=== PATIENT | female | born 1945 | race Caucasian/White ===

== ENCOUNTER 2018-10-02 18:54 | Observation (INO) | payer MEDICARE, OTHER ==
[~2018-10-02] VITALS: Ht 152.4 cm; Wt 49.9 kg
[~2018-10-02 18:54] MED LIST: ALBIPROI; ALBIPROI INH; ALBU8HFA2 INH; ALBU90OI INH; ALBU90OI6 INH; ALEN70; ASCO1ER; ASCO500; ASCO500 PO; ASPI81CH PO; ASPI81EC; ASPI81EC PO; ATOR10 PO; AZIT250 PO; BISO5; BISO5 PO; CALCA500CH PO; CALCAVITDA PO; CALGLU500; CARB200 PO; CARB200ER; CETI10 PO; CHLO25 PO; CHOL10002 PO; ERGO400 PO; ESCI20; FLUO10 PO; FLUSAL2505; FLUSAL2505 IH; HYDACE5 PO; Hair, Skin & N1 EACH PO; LEVFLO500 PO; LEVSOD100; LEVSOD125 PO; LEVSOD150 PO; LEVSOD175; LISI20 PO; MAGOXI400; MULTIVITAMIN; MULVITA; MULVITMIND PO; MULVITMINF PO; NIAC500ER; NIAC500ER PO; PERM5TC TOP; POTA10T PO; POTCHL10ER PO; PRED20 PO; ROSU10TA; SULTRIDS PO; THIA100; TIOT18 IH; TRAZ50; TRIHYD253A; VITAMIN C; VITAMIN D
[2018-10-02 19:39] LABS: Base Excess Venous -1.8 mmol/L; Bicarbonate Venous 22.1 mmol/L (24.0-30.0); PCO2 Venous 45.3 mmHg (38-42); PO2 Venous 35.3 mmHg (38-42); pH Blood Venous 7.33 (7.34-7.37)
[2018-10-02 19:51] LABS: BASOPHILS ABSOLUTE AUTO 0.04 K/mm3 (0.00-0.23); BASOPHILS PERCENT AUTO 1 % (0-2); EOSINOPHILS ABSOLUTE AUTO 0.17 K/mm3 (0.00-0.68); EOSINOPHILS PERCENT AUTO 3 % (0-6); Hemoglobin 12.5 g/dL (11.5-16.0); IMMATURE GRAN ABSOLUTE AUTO 0.02 K/mm3 (0.00-0.10); IMMATURE GRAN PERCENT AUTO 0 % (0-1); LYMPHOCYTES ABSOLUTE AUTO 2.46 K/mm3 (0.84-5.20); LYMPHOCYTES PERCENT AUTO 37 % (21-46); MONOCYTES ABSOLUTE AUTO 0.68 K/mm3 (0.16-1.47); MONOCYTES PERCENT AUTO 10 % (4-13); Mean Corpuscular HGB 33.6 pg (26.0-34.0); Mean Corpuscular HGB Conc 32.1 g/dL (31.5-36.5); Mean Corpuscular Volume 105 fL (80-100); Mean Platelet Volume 9.8 fL (9.1-12.4); NEUTROPHILS ABSOLUTE AUTO 3.36 K/mm3 (1.96-9.15); NEUTROPHILS PERCENT AUTO 50 % (41-73); Platelet Count 177 K/mm3 (150-400); RDW Coefficient Variation 12.9 % (11.7-14.2); RDW Standard Deviation 49.2 fL (35.1-46.3); Red Blood Cell Count 3.72 M/mm3 (3.80-5.20); White Blood Cell Count 6.73 K/mm3 (4.00-11.30)
[2018-10-02 20:17] LABS: Acetaminophen, Random <2.0 ug/mL (10.0-30.0); Carbamazepine 5.5 ug/mL (4.0-12.0); Ethanol (Alcohol), Blood, Med 232 mg/dL; Salicylate 17.3 mg/dL (2.8-20.0)
[2018-10-02 20:20] LABS: Thyroid Stimulating Hormone 0.974 uIU/mL (0.360-4.800)
[2018-10-02 20:23] LABS: Alanine Aminotransfer (ALT/SGP 16 U/L (12-78); Albumin, Blood 3.3 g/dL (3.4-5.0); Albumin/Globulin Ratio 1.1 (0.8-1.8); Alk Phos 114 U/L (50-136); Anion Gap 9 mmol/L (6-16); Aspartate Aminotrans (AST/SGOT 13 U/L (12-37); Bilirubin, Total <0.1 mg/dL (0.1-1.0); Blood Urea Nitrogen 20 mg/dL (8-24); Bun/Creatinine Ratio 27.9 (12.0-20.0); CO2, Blood 23 mmol/L (21-32); Calcium, Blood 8.7 mg/dL (8.5-10.1); Chloride, Blood 107 mmol/L (98-108); Creatinine, Blood 0.72 mg/dL (0.40-1.00); Globulin, Blood 3.1 g/dL (2.2-4.0); Glomerular Filtration Rate >60 (60-); Glucose, Blood 76 mg/dL (70-99); Potassium, Blood 4.2 mmol/L (3.5-5.5); Sodium, Blood 139 mmol/L (136-145); Total Protein, Blood 6.4 g/dL (6.4-8.2)
[2018-10-03 14:01] LABS: Source, Urine Clean Catch
[2018-10-03 14:06] LABS: Appearance, Urine Clear (Clear); Bilirubin, Urine Neg (Neg); Blood, Urine Neg (Neg); Color, Urine Yellow (P-Yellow); Glucose Qualitative, Urine Neg (Neg); Ketones, Urine Neg (Neg); Leukocyte Esterase, Urine Neg (Neg); Nitrite, Urine Neg (Neg); Protein, Urine Neg (Neg); Urobilinogen, Urine NORM (Normal)
[2018-10-03 14:41] LABS: U Amphetamine Screen Not Detected; U Barbituate Screen Not Detected; U Benzodiazapine Screen Not Detected; U Buprenorphine Screen Not Detected; U Cannabinoids Screen Not Detected; U Cocaine Screen Not Detected; U Methadone Screen Not Detected; U Methamphetamine Screen Not Detected; U Opiates Screen Not Detected; U Oxycodone Screen Not Detected; U Phencyclidine Screen Not Detected; U Propoxyphene Screen Not Detected
== END 2018-10-04 15:04 | disposition home or self-care (01) ==
LOC: ER 18:54 → EOR 18:55
PROVIDERS: ADMIT Emergency Medicine
DX: R45.851 Suicidal ideations (principal); F32.9 Major depressive disorder, single episode, unspecified; T50.905A Adverse effect of unspecified drugs, medicaments and biological substances, initial encounter; Z79.899 Other long term (current) drug therapy
CPT/HCPCS: 36415; 80053; 80156; 81003; 82803; 84443; 85025; 99285; G0378; G0480

== ENCOUNTER 2018-10-24 01:36 | Emergency (ER) | payer MEDICARE, OTHER ==
[~2018-10-24] VITALS: Ht 165.1 cm; Wt 45.4 kg
[2018-10-24 02:05] LABS: BASOPHILS ABSOLUTE AUTO 0.04 K/mm3 (0.00-0.23); BASOPHILS PERCENT AUTO 1 % (0-2); EOSINOPHILS ABSOLUTE AUTO 0.21 K/mm3 (0.00-0.68); EOSINOPHILS PERCENT AUTO 4 % (0-6); Hematocrit 39.8 % (33.0-51.0); IMMATURE GRAN ABSOLUTE AUTO 0.08 K/mm3 (0.00-0.10); IMMATURE GRAN PERCENT AUTO 1 % (0-1); LYMPHOCYTES ABSOLUTE AUTO 2.69 K/mm3 (0.84-5.20); LYMPHOCYTES PERCENT AUTO 45 % (21-46); MONOCYTES ABSOLUTE AUTO 0.59 K/mm3 (0.16-1.47); MONOCYTES PERCENT AUTO 10 % (4-13); Mean Corpuscular HGB Conc 32.7 g/dL (31.5-36.5); Mean Corpuscular Volume 104 fL (80-100); Mean Platelet Volume 9.7 fL (9.1-12.4); NEUTROPHILS ABSOLUTE AUTO 2.35 K/mm3 (1.96-9.15); NEUTROPHILS PERCENT AUTO 40 % (41-73); Platelet Count 217 K/mm3 (150-400); RDW Coefficient Variation 13.2 % (11.7-14.2); RDW Standard Deviation 50.8 fL (35.1-46.3); Red Blood Cell Count 3.82 M/mm3 (3.80-5.20); White Blood Cell Count 5.96 K/mm3 (4.00-11.30)
[2018-10-24 02:24] LABS: Ethanol (Alcohol), Blood, Med 264 mg/dL
[2018-10-24 02:25] LABS: Alanine Aminotransfer (ALT/SGP 16 U/L (12-78); Albumin, Blood 3.2 g/dL (3.4-5.0); Alk Phos 97 U/L (50-136); Anion Gap 9 mmol/L (6-16); Aspartate Aminotrans (AST/SGOT 21 U/L (12-37); Bilirubin, Total <0.1 mg/dL (0.1-1.0); Blood Urea Nitrogen 21 mg/dL (8-24); Bun/Creatinine Ratio 28.9 (12.0-20.0); CO2, Blood 25 mmol/L (21-32); Calcium, Blood 8.7 mg/dL (8.5-10.1); Chloride, Blood 110 mmol/L (98-108); Creatinine, Blood 0.73 mg/dL (0.40-1.00); Globulin, Blood 3.2 g/dL (2.2-4.0); Glomerular Filtration Rate >60 (60-); Glucose, Blood 90 mg/dL (70-99); Sodium, Blood 144 mmol/L (136-145); Total Protein, Blood 6.4 g/dL (6.4-8.2); Troponin I <0.015 ng/mL (0.000-0.040)
== END 2018-10-24 07:59 | disposition home or self-care (01) ==
LOC: ER 01:36
PROVIDERS: Emergency Medicine
DX: S70.01XA Contusion of right hip, initial encounter (principal); S00.01XA Abrasion of scalp, initial encounter; F10.129 Alcohol abuse with intoxication, unspecified; J44.9 Chronic obstructive pulmonary disease, unspecified; F32.9 Major depressive disorder, single episode, unspecified; I10 Essential (primary) hypertension; F17.200 Nicotine dependence, unspecified, uncomplicated; Z86.73 Personal history of transient ischemic attack (TIA), and cerebral infarction without residual deficits; Z88.5 Allergy status to narcotic agent; Z88.6 Allergy status to analgesic agent; Z79.82 Long term (current) use of aspirin; Z79.899 Other long term (current) drug therapy; W18.30XA Fall on same level, unspecified, initial encounter
CPT/HCPCS: 36415; 70450; 72125; 73502; 80053; 84484; 85025; 90471; 90714; 93005; 93010; 96360; 96361; 99284-25; G0480; J7030

== ENCOUNTER 2019-04-02 19:46 | Observation (INO) | payer MEDICARE, OTHER ==
[~2019-04-02] VITALS: Ht 165.1 cm; Wt 47.6 kg
[2019-04-02 21:21] LABS: Hematocrit 38.1 % (33.0-51.0); Hemoglobin 12.4 g/dL (11.5-16.0); Mean Corpuscular HGB 34.3 pg (26.0-34.0); Mean Corpuscular HGB Conc 32.5 g/dL (31.5-36.5); Mean Corpuscular Volume 106 fL (80-100); Mean Platelet Volume 10.3 fL (9.1-12.4); Platelet Count 184 K/mm3 (150-400); RDW Coefficient Variation 13.4 % (11.7-14.2); RDW Standard Deviation 52.5 fL (35.1-46.3); Red Blood Cell Count 3.61 M/mm3 (3.80-5.20); White Blood Cell Count 6.86 K/mm3 (4.00-11.30)
[2019-04-02 21:30] LABS: Bun/Creatinine Ratio 21.4 (12.0-20.0); Calcium, Blood 8.8 mg/dL (8.5-10.1); Creatinine, Blood 0.98 mg/dL (0.40-1.00); Potassium, Blood 4.1 mmol/L (3.5-5.5)
[2019-07-15] MEDS ORDERED: ASPI325 PO (08:56)
== END 2019-04-03 05:34 | disposition home or self-care (01) ==
LOC: ER 19:46 → EOR 19:47
PROVIDERS: ADMIT Emergency Medicine
DX: F10.129 Alcohol abuse with intoxication, unspecified (principal); M16.11 Unilateral primary osteoarthritis, right hip; F32.9 Major depressive disorder, single episode, unspecified; I10 Essential (primary) hypertension; G40.909 Epilepsy, unspecified, not intractable, without status epilepticus; J44.9 Chronic obstructive pulmonary disease, unspecified; E78.5 Hyperlipidemia, unspecified; F17.210 Nicotine dependence, cigarettes, uncomplicated; Z79.899 Other long term (current) drug therapy; Z79.82 Long term (current) use of aspirin; Y90.8 Blood alcohol level of 240 mg/100 ml or more
CPT/HCPCS: 36415; 73502; 80048; 85027; 96360; 99285-25; G0378; G0480; J7030

== ENCOUNTER 2019-07-21 07:46 | Day surgery (SDC) | payer MEDICARE, OTHER ==
[~2019-07-21] VITALS: Ht 165.1 cm; Wt 51.3 kg
[~2019-07-21 07:46] MED LIST changes: +ASPI325 PO
--- NOTE | 2019-07-21 09:21 | NUR ---
07/21/19 0921 Rakel Alvarez PT HAS WET, PRODUCTIVE COUGH ALONG WITH BILATERAL WHEEZES THROUGHOUT LUNGS. PT CURRENTLY SMOKES 1 PPD. ANESTHESIA AND SURGEON NOTIFIED. NO ORDERS. HEAD OF BED ELELATED TO UPRIGHT POSITION TO ALLEVIATE COUGH AND RESPIRATORY DISCOMFORT. KNEES ELEVATED TO RELIEVE SOME HIP PAIN DUE TO POSITIONAL DISCOMFORT. PT STATES IMPROVED COMFORT AND DENIES FURTHER NEEDS AT THIS TIME. PT EDUCATED ON SMOKING CESSATION, ALONG WITH INSTRUCTIONS TO NOTIFY OR STAFF DURING PROCEDURE IF PT HAS NEED TO COUGH OR MOVE. PT TEARFUL WHEN TALKING ABOUT SMOKING CESSATION AND CURRENT ALCOHOLIC SOBRIETY FOR LAST 4 MONTHS. PT ENCOURAGED AND COMFORTED.
== END 2019-07-21 10:18 | disposition home or self-care (01) ==
LOC: ORSCSDS 07:46
PROVIDERS: Ophthalmology
PROC: 08RJ3JZ Replacement of Right Lens with Synthetic Substitute, Percutaneous Approach (ICD-10-PCS; principal; 2019-07-21 09:30)
DX: H25.11 Age-related nuclear cataract, right eye (principal); I10 Essential (primary) hypertension; I48.0 Paroxysmal atrial fibrillation; J44.9 Chronic obstructive pulmonary disease, unspecified; F17.210 Nicotine dependence, cigarettes, uncomplicated; G40.909 Epilepsy, unspecified, not intractable, without status epilepticus; E78.00 Pure hypercholesterolemia, unspecified; Z79.82 Long term (current) use of aspirin; Z79.899 Other long term (current) drug therapy
CPT/HCPCS: J2001; J2250; J3010; J3301; J7120; V2632

== ENCOUNTER 2019-08-06 21:03 | Observation (INO) | payer MEDICARE, OTHER ==
[~2019-08-06] VITALS: Ht 165.1 cm; Wt 49.9 kg
[2019-08-06 22:08] LABS: BASOPHILS ABSOLUTE AUTO 0.04 K/mm3 (0.00-0.23); BASOPHILS PERCENT AUTO 1 % (0-2); EOSINOPHILS ABSOLUTE AUTO 0.19 K/mm3 (0.00-0.68); EOSINOPHILS PERCENT AUTO 3 % (0-6); Hematocrit 40.4 % (33.0-51.0); Hemoglobin 13.1 g/dL (11.5-16.0); IMMATURE GRAN ABSOLUTE AUTO 0.01 K/mm3 (0.00-0.10); IMMATURE GRAN PERCENT AUTO 0 % (0-1); LYMPHOCYTES ABSOLUTE AUTO 2.44 K/mm3 (0.84-5.20); LYMPHOCYTES PERCENT AUTO 42 % (21-46); MONOCYTES ABSOLUTE AUTO 0.51 K/mm3 (0.16-1.47); MONOCYTES PERCENT AUTO 9 % (4-13); Mean Corpuscular HGB 34.1 pg (26.0-34.0); Mean Corpuscular HGB Conc 32.4 g/dL (31.5-36.5); Mean Corpuscular Volume 105 fL (80-100); Mean Platelet Volume 10.2 fL (9.1-12.4); NEUTROPHILS ABSOLUTE AUTO 2.59 K/mm3 (1.96-9.15); NEUTROPHILS PERCENT AUTO 45 % (41-73); Platelet Count 173 K/mm3 (150-400); RDW Standard Deviation 49.9 fL (35.1-46.3); Red Blood Cell Count 3.84 M/mm3 (3.80-5.20); White Blood Cell Count 5.78 K/mm3 (4.00-11.30)
[2019-08-06 22:24] LABS: Alanine Aminotransfer (ALT/SGP 16 U/L (12-78); Albumin, Blood 3.3 g/dL (3.4-5.0); Albumin/Globulin Ratio 1.1 (0.8-1.8); Alk Phos 84 U/L (50-136); Anion Gap 11 mmol/L (6-16); Aspartate Aminotrans (AST/SGOT 16 U/L (12-37); Bilirubin, Total <0.1 mg/dL (0.1-1.0); Blood Urea Nitrogen 19 mg/dL (8-24); Bun/Creatinine Ratio 26.1 (12.0-20.0); CO2, Blood 21 mmol/L (21-32); Calcium, Blood 8.8 mg/dL (8.5-10.1); Chloride, Blood 110 mmol/L (98-108); Creatinine, Blood 0.73 mg/dL (0.40-1.00); Glomerular Filtration Rate >60 (60-); Glucose, Blood 82 mg/dL (70-99); Potassium, Blood 4.6 mmol/L (3.5-5.5); Sodium, Blood 142 mmol/L (136-145); Total Protein, Blood 6.3 g/dL (6.4-8.2)
[2019-08-06 22:45] LABS: Carbamazepine 8.6 ug/mL (4.0-12.0)
[2019-08-06] MEDS ORDERED: PRED FORTE5 ML BOTHEYES (22:46)
[2019-08-06 23:27] LABS: Ethanol (Alcohol), Blood, Med 240 mg/dL
--- NOTE | 2019-08-07 00:55 | NUR ---
Report from Veronica WATSON in ED on PT with ETOH abuse positive etoh screen admitted to drinking 1/2 adriel Vodka yestereday. HX of recent catarct removal 07/21/19 and scheduled for other eye to have cataract removed on 08/11/19. Lives alone per report and admitted after fall with head hit. 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 Await admission to room 344 for remote camera moniitoring ability. Will be on seizure and fall precautions. Reported to Monty Watson and regulatory revieved to facilitate placement in Special care unit. NPO status. Reported ETOH WD protocol started in ER.
--- NOTE | 2019-08-07 01:49 | NUR ---
ARRIVAL NOTE PT ARRIVED TO UNIT VIA STRETCHER, SLIDE TRANSFER TO BED. PT IS LETHARGIC DIFFICULT TO AROUSE. PT REPORTS DRINKING VODKA, RESPONDS "I DONT KNOW" WHEN ASKED HOW MUCH. SPEECH IS SLURRED. PT IS PAINFUL WITH MOVEMENT, SIGNIFICANT PAIN TO R HIP. PT IS POOR HISTORIAN, UNABLE TO ANSWER MOST HX Q'S, UNABLE TO REPORT HOME MEDS. PT PLACED IN SEIZURE PRECAUTIONS. ASSUMING CARE OF PT.
--- NOTE | 2019-08-07 02:24 | NUR ---
CALLED HOSPITALIST CALLED DR SWENSON ABOUT PTS LOW BP. PT BP IN ER WAS 90/58, WHEN CHECK ON THE FLOOR IT WAS 87/54. DR SWENSON SAID TO WATCH THE PT FOR ANOTHER 30 MIN WHILE THE BANNAN BAG INFUSED AND TO CALL WITH REULTS. NO CIWA'S INDICATED BECUASE THE PT IS RESPONSIVE AND ANSWERING QUESTIONS APPROPIATLY.
--- NOTE | 2019-08-07 02:54 | NUR ---
FOLLOW UP HOSPITAL CALL RECHECKED BP; 87/45. DR SWENSON NOTIFIED AND ORDERED TO STOP THE BANANA BAG AND INFUSE 500ML BOLUS OF NS AND THEN CONTINUE THE BANANA BAG AFTER COMPLETION.
--- NOTE | 2019-08-07 04:08 | NUR ---
BEGINNING SHIFT SUMMARY ASSUMED CARE OF PT AT 0113. PT IS LETHARGIC AND KEEPS HER EYES CLOSED EVEN WHEN RESPONDING. PT IS SLOW TO RESPOND AND [place]. PT BP IS ER WAS 90S SYSTOLIC AND WAS 87 SYSTOLIC WHEN ADMISSION VITALS TACKEN. SEE PREVIOUS SHIFT NOTES. NEW VITALS JUST TAKEN AFTER BOLUS; 108/58. PT IS CURRENTLY SLEEPING AND SNORING. PT RESPOSES TO COMMANDS. HEART SOUNDS REGULAR. INSPIRATORY WHEEZING NOTED BILATERALLY AT THE BASES. CHRONIC R HIP FRACTURE, PT MOANS WHEN ROLLED ONTO THE LEFT AND THE LEG IS FLEXED. HEMATOMA ON L HAND/WRIST. PAINFUL TO TOUCH. PERIPHERAL LUPSES STRONG. BANANA BAG INFUSING @ 200ML/HR. PT ON SEIZURE PRECAUTIONS DUE TO PREVIOUS HISTORY OF. WILL CONTINUE TO [facility], CALL LIGHT IN REACH, BED IN LOWEST POSITION.
--- NOTE | 2019-08-07 05:00 | NUR ---
END OF SHIFT [facility] NO ACUTE CHANGES. PT SLEEPING SOUNDLY. BANANA BAG INFUSING @ 200ML/HR. ON CONTINUOUS BIOX ABOVE 95. SCUDS ON. CALL LIGHT IN REACH, BED IN LOWEST POSITION, WILL CONTINUE TO MONITOR UNTIL DAYSHIFT NURSE ARRIVES.
[2019-08-07] MEDS ORDERED: LEVSOD125 PO (09:13)
[2019-08-07] MEDS ORDERED: THERA1 EACH PO (11:48)
[2019-08-07] MEDS ORDERED: ACET325 PO (11:48)
[2019-08-07] MEDS ORDERED: FOLI1 PO (11:48)
[2019-08-07] MEDS ORDERED: B-1100 MG PO (11:49)
[2019-08-07] MEDS ORDERED: Nicoderm Cq1 EAC1 TOP (11:49)
--- NOTE | 2019-08-07 13:04 | NUR ---
HOLD D/C DR CHA IN TO SEE PT THIS AM, PT STATE DESIRE TO GO HOME. DR CHA RELUCTANTLY PROVIDE HER D/C HOME ORDERS W , HOWEVER BACK TO ROOM, RECONSIDER, EXPLAINED TO PT REASONS, SHE IS AGREEABLE TO CONTINUE HOSP TX @ THIS TIME. DR ROBIN DAVILA, AWAITING ORTHO CONSULT.
--- NOTE | 2019-08-07 15:20 | NUR ---
SUMMARY PT IS A/O X3, PHYTHER IN TO EVAL THIS AM, PT AMBULATED IN VIEIRA w FFW/BG, 1 ASSIST. SHE WAS HOPEFUL TO GO HOME, DR CHA CONSIDERED HOWEVER EXPLAINED TO HER THAT NOT SAFE @ THIS TIME D/T TO FALL @ HOME & PT HAS NO HELP @ HOME. SHE AGREE NOT READY FOR D/C HOME. SHE HAS HX R HIP DEGENERATIVE DISEASE, DR ORANTES IN FOR ORTHO CONSULT TODAY. PT HAS LRG HEMATOMA L HAND R/T FALL @ HOME, DR CHA HAD IT X-RAY TODAY. ICE PACK PROVIDED. PT WAS SOMEWHAT DISTRAUGHT THIS AM BECAUSE SHE DID NOT KNOW WHAT HAPPENED TO HER HOUSE KEYS, SHE WAS ABLE TO DESCRIBE THEM TO ER & THEY WERE LOCATED & RETURNED TO HER. BLOOD ALC ELEVATED ON ADMIT, CIWA HAVE BEEN ZERO SO FAR. VSS.
--- NOTE | 2019-08-07 21:02 | NUR ---
BEGINNING SHIFT SUMMARY ASSUMED CARE OF PT AT 1915. PT LYING IN BED SLEEPING. PT IS ALERT AND ORIENTED. PT OPENS EYES WHEN SPEAKING AND RESPONDS APPROPIATLY. HEART SOUNDS REGULAR, PERIPHERAL PULSES STRONG IN ALL EXTRMITIES, SCUDS ON, IV ACCESS IN L ARM SALINE LOCKED, FLUSHED WITH 10ML NS. LUNG SOUNDS HAVE EXPIRATORY WHEEZING AT THE BASES, UNLABORED, DENIES SOB OR DYSPNEA. BOWEL SOUNDS HYPERATIVE, LEIGH NEASEA.PT C/O R HIP PAIN, X RAY SHOWED NECROSIS OF THE FEMORAL HEAD, DR BEAULIEU WILL NOT OPERATE BECAUSE PT REFUSES TO QUIT DRINKING AND SMOKING. L HAND X RAY SHOWED A SMALL FRACTURE. HEAT AND COLD THERAPY USED FOR PAIN, ALONG WITH TYLENOL. PT IS CURRENTLY WATCHING TV. CALL LIGHT IN REACH, BED IN LOWEST POSITION, BED ALARM ON, WILL CONTINUE TO MONITOR THROUGHOUT THE SHIFT.
--- NOTE | 2019-08-08 05:02 | NUR ---
END OF SHIFT SUMMARY NO ACUTE CHANGES NOTED THROUGHOUT THE SHIFT. PT IS SLEEPING IN HER BED. PT OCCASIONALLY NIMO OUT WHEN REPOSITIONING. PT WAS GIVEN TYLENOL, HEAT AND COLD THERAPY FOR PAIN. CALL LIGHT IN REACH, BED IN LOWEST POSITION, WILL CONTINUE TO MONITOR UNTIL DAY SHIFT NURSE ARRIVES.
[2019-08-08 07:48] LABS: BASOPHILS ABSOLUTE AUTO 0.04 K/mm3 (0.00-0.23); BASOPHILS PERCENT AUTO 1 % (0-2); EOSINOPHILS ABSOLUTE AUTO 0.17 K/mm3 (0.00-0.68); EOSINOPHILS PERCENT AUTO 3 % (0-6); Hematocrit 38.6 % (33.0-51.0); Hemoglobin 12.8 g/dL (11.5-16.0); IMMATURE GRAN ABSOLUTE AUTO 0.01 K/mm3 (0.00-0.10); IMMATURE GRAN PERCENT AUTO 0 % (0-1); LYMPHOCYTES ABSOLUTE AUTO 1.61 K/mm3 (0.84-5.20); LYMPHOCYTES PERCENT AUTO 31 % (21-46); MONOCYTES ABSOLUTE AUTO 0.53 K/mm3 (0.16-1.47); MONOCYTES PERCENT AUTO 10 % (4-13); Mean Corpuscular HGB 33.7 pg (26.0-34.0); Mean Corpuscular HGB Conc 33.2 g/dL (31.5-36.5); Mean Platelet Volume 10.1 fL (9.1-12.4); NEUTROPHILS ABSOLUTE AUTO 2.82 K/mm3 (1.96-9.15); NEUTROPHILS PERCENT AUTO 54 % (41-73); Platelet Count 182 K/mm3 (150-400); RDW Coefficient Variation 12.7 % (11.7-14.2); RDW Standard Deviation 47.3 fL (35.1-46.3); White Blood Cell Count 5.18 K/mm3 (4.00-11.30)
[2019-08-08 07:49] LABS: Mean Corpuscular Volume 102 fL (80-100)
[2019-08-08 08:09] LABS: Alanine Aminotransfer (ALT/SGP 14 U/L (12-78); Albumin, Blood 3.1 g/dL (3.4-5.0); Albumin/Globulin Ratio 1.1 (0.8-1.8); Alk Phos 84 U/L (50-136); Anion Gap 5 mmol/L (6-16); Aspartate Aminotrans (AST/SGOT 14 U/L (12-37); Bilirubin, Total 0.2 mg/dL (0.1-1.0); Blood Urea Nitrogen 17 mg/dL (8-24); CO2, Blood 26 mmol/L (21-32); Calcium, Blood 8.6 mg/dL (8.5-10.1); Chloride, Blood 106 mmol/L (98-108); Creatinine, Blood 0.63 mg/dL (0.40-1.00); Globulin, Blood 2.8 g/dL (2.2-4.0); Glomerular Filtration Rate >60 (60-); Glucose, Blood 92 mg/dL (70-99); Magnesium, Blood 1.3 mg/dL (1.6-2.4); Potassium, Blood 4.3 mmol/L (3.5-5.5); Sodium, Blood 137 mmol/L (136-145); Total Protein, Blood 5.9 g/dL (6.4-8.2)
--- NOTE | 2019-08-08 15:27 | NUR ---
SUMMARY PT HAS HAD UNEVENTFUL DAY, SHE STATE WEAKNESS/FATIGUE IMPROVING. STATE MINIMAL TO NO PAIN @ REST. SHE IS ABLE TO AMBULATE TO BR W FWW/GB SBA, GAIT IMPAIRED D/T R HIP DAMAGE/NECROSIS. L HAND FX D/T FALL @ HOME. HAVE GIVEN TYLENOL & PROVIDED ICEPACK & KPAD FOR PAIN RELIEF. DR CHA HAD A CALL PUT OUT FOR DR Gisella BEAULIEU TO COME BACK & ASSESS L HAND FX & PROVIDE TX RECOMMENDATIONS, FOR NOW JUST APPLYING ICE PRN, PT DECLINED LARS WRAP. SHE IS PLEASANT, A/O X4, VSS.
--- NOTE | 2019-08-09 04:22 | NUR ---
SHIFT SUMMARY NO ACUTE CHANGES THIS SHIFT. PT WAS MOVED TO THE MAIN UNIT FROM THE SCU SHORTLY BEFORE SHIFT CHANGE. SHE HAS BEEN A/OX4, PLESANT AND COOPERATIVE WITH CARE. PT COMPLAINS OF CHRONIC RIGHT HIP PAIN. MEDICATED WITH TYLENOL X2 WITH EFFECT. PT UP WITH 1 PA, MOVEMENT DIFFICULT DUE TO PAIN IN HER HIP. LEFT HAND PAINFUL BUT PT STATES MILD. DR. BEAULIEU IN TO SEE PT THIS SHIFT AND SPLINTED HER HAND. PT DENIES N/T TO LEFT HAND. LEFT HAND IS WARM TO TOUCH. VITALS STABLE. OVERALL RESTFUL NIGHT. WILL CONTINUE TO MONITOR AND REPORT TO ONCOMING RN.
== END 2019-08-09 16:50 | disposition home health service (06) ==
LOC: ER 21:03 → MEDS 21:04 → ICUW 21:04 → ER 08-07 01:03 → MEDS 08-07 01:13 → EDPENDDIS 08-07 11:42 → ENPENDDIS 08-07 11:42 → MEDS 08-08 18:26
PROVIDERS: Emergency Medicine; Hospitalist; ADMIT Family Medicine
DX: G92 Toxic encephalopathy (principal); T40.605A Adverse effect of unspecified narcotics, initial encounter; F10.129 Alcohol abuse with intoxication, unspecified; S62.325A Displaced fracture of shaft of fourth metacarpal bone, left hand, initial encounter for closed fracture; J44.9 Chronic obstructive pulmonary disease, unspecified; I10 Essential (primary) hypertension; E78.5 Hyperlipidemia, unspecified; M87.851 Other osteonecrosis, right femur; M16.12 Unilateral primary osteoarthritis, left hip; E89.0 Postprocedural hypothyroidism; G40.909 Epilepsy, unspecified, not intractable, without status epilepticus; C73 Malignant neoplasm of thyroid gland; K70.10 Alcoholic hepatitis without ascites; F10.188 Alcohol abuse with other alcohol-induced disorder; M81.0 Age-related osteoporosis without current pathological fracture; G62.9 Polyneuropathy, unspecified; F32.9 Major depressive disorder, single episode, unspecified; F17.210 Nicotine dependence, cigarettes, uncomplicated; H26.9 Unspecified cataract; R62.7 Adult failure to thrive; Z68.1 Body mass index [BMI] 19.9 or less, adult; Z90.49 Acquired absence of other specified parts of digestive tract; Z79.82 Long term (current) use of aspirin; Z79.899 Other long term (current) drug therapy; Z85.810 Personal history of malignant neoplasm of tongue; Z66 Do not resuscitate; Z88.5 Allergy status to narcotic agent; Z88.8 Allergy status to other drugs, medicaments and biological substances; W19.XXXA Unspecified fall, initial encounter; Y90.8 Blood alcohol level of 240 mg/100 ml or more
CPT/HCPCS: 36415; 71045; 73130; 73502; 80053; 80156; 83735; 84100; 84443; 85025; 93005; 93010; 94640; 94760; 94762; 96374; 96375; 97116; 97162; 97165; 97530; 97535; 99285-25; A9270; G0480; J1170; J2310; J2405; J3411; J3475; J7040; J7042

== ENCOUNTER 2019-12-01 08:45 | Day surgery (SDC) | payer MEDICARE, OTHER ==
[~2019-12-01] VITALS: Ht 165.1 cm; Wt 51.4 kg
[~2019-12-01 08:45] MED LIST changes: +ACET325 PO; +B-1100 MG PO; +FOLI1 PO; +Nicoderm Cq1 EAC1 TOP; +PRED FORTE5 ML BOTHEYES; +THERA1 EACH PO
--- NOTE | 2019-12-01 09:53 | NUR ---
12/01/19 0953 Kurt Henderson CALL LIGHT WITHIN REACH.
== END 2019-12-01 11:09 | disposition home or self-care (01) ==
LOC: ORSCSDS 08:45
PROVIDERS: Ophthalmology
PROC: 08RK3JZ Replacement of Left Lens with Synthetic Substitute, Percutaneous Approach (ICD-10-PCS; principal; 2019-12-01 10:30)
DX: H25.12 Age-related nuclear cataract, left eye (principal); J44.9 Chronic obstructive pulmonary disease, unspecified; F17.210 Nicotine dependence, cigarettes, uncomplicated
CPT/HCPCS: J2001; J2250; J3010; J3301; J7040; V2632

== ENCOUNTER 2022-09-27 21:16 | Emergency (ER) | payer OTHER ==
[~2022-09-27] VITALS: Ht 165.1 cm; Wt 56.7 kg
[2022-09-27 21:44] LABS: BASOPHILS ABSOLUTE AUTO 0.05 K/mm3 (0.00-0.23); BASOPHILS PERCENT AUTO 1 % (0-2); EOSINOPHILS ABSOLUTE AUTO 0.14 K/mm3 (0.00-0.68); EOSINOPHILS PERCENT AUTO 2 % (0-6); Hematocrit 37.5 % (33.0-51.0); Hemoglobin 12.6 g/dL (11.5-16.0); IMMATURE GRAN ABSOLUTE AUTO 0.02 K/mm3 (0.00-0.10); IMMATURE GRAN PERCENT AUTO 0 % (0-1); LYMPHOCYTES ABSOLUTE AUTO 2.53 K/mm3 (0.84-5.20); LYMPHOCYTES PERCENT AUTO 34 % (21-46); MONOCYTES ABSOLUTE AUTO 0.78 K/mm3 (0.16-1.47); MONOCYTES PERCENT AUTO 11 % (4-13); Mean Corpuscular HGB 32.7 pg (26.0-34.0); Mean Corpuscular HGB Conc 33.6 g/dL (31.5-36.5); Mean Corpuscular Volume 97 fL (80-100); Mean Platelet Volume 9.8 fL (9.1-12.4); NEUTROPHILS ABSOLUTE AUTO 3.84 K/mm3 (1.96-9.15); NEUTROPHILS PERCENT AUTO 52 % (41-73); Platelet Count 214 K/mm3 (150-400); RDW Coefficient Variation 12.9 % (11.7-14.2); RDW Standard Deviation 45.6 fL (35.1-46.3); Red Blood Cell Count 3.85 M/mm3 (3.80-5.20); White Blood Cell Count 7.36 K/mm3 (4.00-11.30)
[2022-09-27 22:05] LABS: Alanine Aminotransfer (ALT/SGP 18 U/L (12-78); Albumin, Blood 3.3 g/dL (3.4-5.0); Alk Phos 95 U/L (50-136); Anion Gap 8 mmol/L (6-16); Aspartate Aminotrans (AST/SGOT 16 U/L (12-37); Bilirubin, Total <0.1 mg/dL (0.1-1.0); Blood Urea Nitrogen 21 mg/dL (8-24); Bun/Creatinine Ratio 33.8 (12.0-20.0); CO2, Blood 24 mmol/L (21-32); Calcium, Blood 9.3 mg/dL (8.5-10.1); Chloride, Blood 109 mmol/L (98-108); Creatinine, Blood 0.62 mg/dL (0.40-1.00); Globulin, Blood 3.2 g/dL (2.2-4.0); Glomerular Filtration Rate 93 (60-); Glucose, Blood 95 mg/dL (70-99); Potassium, Blood 4.5 mmol/L (3.5-5.5); Sodium, Blood 141 mmol/L (136-145); Total Protein, Blood 6.5 g/dL (6.4-8.2)
== END 2022-09-27 22:00 | disposition left against medical advice (07) ==
LOC: ER 21:16
PROVIDERS: Student in an Organized Health Care Education/Training Program
DX: R11.2 Nausea with vomiting, unspecified (principal); R19.7 Diarrhea, unspecified; R53.1 Weakness; R50.9 Fever, unspecified; Z53.21 Procedure and treatment not carried out due to patient leaving prior to being seen by health care provider
CPT/HCPCS: 36415; 80053; 85025

== ENCOUNTER → 2022-11-25 | Outpatient (CLI) | payer OTHER ==
[2022-11-28 08:54] LABS: Stool Occult Bld Immuno 1 Negative (NEGATIVE)
== END | disposition home or self-care (01) ==
LOC: LAB SHORT 10:50 → LAB 10:50
PROVIDERS: Physician Assistant
DX: Z12.11 Encounter for screening for malignant neoplasm of colon (principal)
CPT/HCPCS: G0328

== ENCOUNTER 2023-10-08 06:11 | Inpatient (IN) | payer OTHER ==
[2023-10-08] VITALS (15 sets, daily range): BP systolic 86–127; BP diastolic 59–80
[~2023-10-08] VITALS: Ht 162.6 cm; Wt 67.4 kg
[~2023-10-08 06:11] MED LIST changes: +OMEP20ER PO
--- NOTE | 2023-10-08 07:35 | NUR ---
History, Chart, Medications and Allergies reviewed before start of procedure. Pre-Op teaching done. Pt verbalizes understanding. Wheelchaired into Day Surgery.
--- NOTE | 2023-10-08 11:06 | NUR ---
PATIENT ARRIVED FROM PACU TODAY AT 1100. POD 0 RIGHT TOTAL HIP POSTERIOR PATIENT IS DROWSY BUT IS EASILY WOKEN UP BY VERBAL STIMULI. WHEN WOKEN UP PATIENT IS A&OX4. PATIENT IS ON 2L NC WITH >90% OXYGEN SATS. HER RIGHT HIP HAS X3 GAUZE WITH FOAM TAPE THAT ARE C/D/I. PATIENT DENIES PAIN AT THIS TIME SINCE SHE HAD A SPINAL DURING THE PROCEDURE AND REPORTS NUMBNESS AND TINGLING FROM THE HIPS DOWN. SHE IS UNABLE TO WIGGLE HER TOES WHEN ASKED BUT HER FEET ARE WARM TO TOUCH WITH STRONG PEDAL PULSES. PATIENT IS CURRENTLY LAYING IN BED WITH CALL LIGHT IN REACH.
--- NOTE | 2023-10-08 15:14 | NUR ---
SHIFT SUMMARY: POD 0 RIGHT TOTAL HIP POSTERIER PATIENT IS A&OX4. PATIENT HAD A SPINAL DURING THE PROCEDURE AND STILL REPORTS NUMBNESS FROM THE MID-CALFS DOWN, BUT SHE IS ABLE TO WIGGLE/MOVE HER TOES/FEET. FOR PAIN PATIENT HAS ONLY HAD IV TORADOL AT THIS TIME SINCE SHE DENIES PAIN. HER RIGHT HIP HAS X3 GAUZE WITH FOAM TAPE THAT ARE C/D/I. SHE IS TOLERATING PO INTAKE. PATIENT IS CURRENTLY LAYING IN BED WITH CALL LIGHT IN REACH. THE PLAN IS TO WORK WITH PHYSICAL AND OCCUPATIONAL THERAPY TOMORROW WELL CONTINUE PAIN MANAGEMENT.
[2023-10-09 03:32] VITALS: BP 104/63
[2023-10-09 04:47] LABS: BASOPHILS ABSOLUTE AUTO 0.03 K/mm3 (0.00-0.23); BASOPHILS PERCENT AUTO 0 % (0-2); EOSINOPHILS ABSOLUTE AUTO 0.04 K/mm3 (0.00-0.68); EOSINOPHILS PERCENT AUTO 1 % (0-6); Hematocrit 27.8 % (33.0-51.0); Hemoglobin 9.3 g/dL (11.5-16.0); IMMATURE GRAN ABSOLUTE AUTO 0.02 K/mm3 (0.00-0.10); IMMATURE GRAN PERCENT AUTO 0 % (0-1); LYMPHOCYTES ABSOLUTE AUTO 1.13 K/mm3 (0.84-5.20); LYMPHOCYTES PERCENT AUTO 16 % (21-46); MONOCYTES ABSOLUTE AUTO 0.73 K/mm3 (0.16-1.47); MONOCYTES PERCENT AUTO 10 % (4-13); Mean Corpuscular HGB 30.8 pg (26.0-34.0); Mean Corpuscular HGB Conc 33.5 g/dL (31.5-36.5); Mean Corpuscular Volume 92 fL (80-100); Mean Platelet Volume 10.3 fL (9.1-12.4); NEUTROPHILS ABSOLUTE AUTO 5.06 K/mm3 (1.96-9.15); NEUTROPHILS PERCENT AUTO 72 % (41-73); Platelet Count 193 K/mm3 (150-400); RDW Coefficient Variation 12.9 % (11.7-14.2); RDW Standard Deviation 43.3 fL (35.1-46.3); Red Blood Cell Count 3.02 M/mm3 (3.80-5.20); White Blood Cell Count 7.01 K/mm3 (4.00-11.30)
--- NOTE | 2023-10-09 05:10 | NUR ---
SHIFT SUMMARY POD 1 R FERNANDO PT ABLE TO REST DURING THE NIGHT. PAIN MANAGED PER EMAR. TOLERTING PO INTAKE, VOIDING. UP TO THE BATHROOM DURING THE NIGHT. DENIES N/T IN ALL EXT'S. POSTERIOR PRECAUTIONS. NO OTHER CONCERNS AT THIS TIME. CALL LIGHT VETO ZARAGOZA.
[2023-10-09 05:11] LABS: Creatinine, Blood 0.74 mg/dL (0.40-1.00); Magnesium, Blood 1.5 mg/dL (1.6-2.4)
[2023-10-09 07:18] VITALS: BP 111/63
[2023-10-09 13:51] VITALS: BP 106/64
--- NOTE | 2023-10-09 15:13 | NUR ---
10/09/23 1513 Cornelia Meeks VERIFICATIONS: EDIT CHART.
--- NOTE | 2023-10-09 16:06 | NUR ---
SHIFT SUMMARY PT DID NOT CLEAR THERAPY. IS VERY WEAK & INTERMITTENTLY C/O DIZZINESS. SAT UP IN CHAIR x 2 TODAY FOR OVER 2 HOURS EACH TIME. WORKED w/ PT TWICE & OT ONCE. EATING SMALL AMOUNTS, BUT STATES THAT's NORMAL. DRINKING & VOIDING. PAIN WELL MANAGED. DECLINES TORADOL OCCASIONALLY. CARE MANAGEMENT INVOLVED.
[2023-10-09 16:41] VITALS: BP 111/67
[2023-10-09 18:46] VITALS: BP 106/64
[2023-10-10] VITALS (37 sets, daily range): BP systolic 80–135; BP diastolic 54–83
--- NOTE | 2023-10-10 03:16 | NUR ---
UPDATE PT STARTED COMPLAINING OF PAIN IN THE UPPER PART OF THE ABD, UNDER HER RIBS. PT ABD HAS BECOME MORE DISTENTED, HARD AND BECAME TENDER TO PALP. PT WAS BECOMING MORE ANXIOUS AND STATES SHE IS MORE DIZZY. PT BP WAS LOW FLUIDS WERE STARTED BACK UP AGAIN AND BP CAME BACK. ORTHO DR WAS CALLED AND HOSPITALIST WAS CONSULTED. DR. MOY WAS CALLED AND DR CAME UP TO SEE PT. ORDERS WERE GIVEN.
[2023-10-10 04:49] LABS: Hematocrit 31.7 % (33.0-51.0); Hemoglobin 10.4 g/dL (11.5-16.0); Mean Corpuscular HGB 30.6 pg (26.0-34.0); Mean Corpuscular HGB Conc 32.8 g/dL (31.5-36.5); Mean Corpuscular Volume 93 fL (80-100); Mean Platelet Volume 10.2 fL (9.1-12.4); Platelet Count 270 K/mm3 (150-400); RDW Standard Deviation 44.5 fL (35.1-46.3); White Blood Cell Count 6.33 K/mm3 (4.00-11.30)
[2023-10-10 05:11] LABS: Bun/Creatinine Ratio 28.3 (12.0-20.0); Creatinine, Blood 0.92 mg/dL (0.40-1.00); Magnesium, Blood 3.3 mg/dL (1.6-2.4)
--- NOTE | 2023-10-10 05:30 | NUR ---
pts bp hypotensive again 80's,called dr mart and advised of labs ,i/o current status and orders received.
--- NOTE | 2023-10-10 05:39 | NUR ---
DR MOY AT BEDSIDE TO CHECK ON PT. PT HAD A LOW BP AND LOW SATS. O2 WAS PUT ON AND SATS CAME UP. DR MOY WAS NOTIFIED, ORDERS WERE GIVEN, THEN CAME TO BEDSIDE.
--- NOTE | 2023-10-10 06:15 | NUR ---
SHIFT SUMMARY NO NEW CONCERNS SINCE DR CAME TO SEE PT. PT ON 2L NC SATTING ABOVE 95%. BOLUS IS RUNNING. WILL CHECK BP AFTER BOLUS. PT SIITNG COMFORTABLEY AT THE MOMENT. DRESSING TO R HIP CHANGED THIS MORNING. CALL LIGHT WITHIN REACH
[2023-10-10 14:17] LABS: Hematocrit 31.5 % (33.0-51.0); Hemoglobin 10.6 g/dL (11.5-16.0); Mean Corpuscular HGB 31.5 pg (26.0-34.0); Mean Corpuscular HGB Conc 33.7 g/dL (31.5-36.5); Mean Corpuscular Volume 94 fL (80-100); Mean Platelet Volume 9.9 fL (9.1-12.4); Platelet Count 208 K/mm3 (150-400); RDW Coefficient Variation 13.2 % (11.7-14.2); RDW Standard Deviation 45.1 fL (35.1-46.3); Red Blood Cell Count 3.36 M/mm3 (3.80-5.20); White Blood Cell Count 3.44 K/mm3 (4.00-11.30)
[2023-10-10 14:33] LABS: Albumin/Globulin Ratio 0.6 (0.8-1.8); Bilirubin, Total 0.3 mg/dL (0.1-1.0); Bun/Creatinine Ratio 25.5 (12.0-20.0); Calcium, Blood 7.9 mg/dL (8.5-10.1); Creatinine, Blood 1.02 mg/dL (0.40-1.00); Globulin, Blood 3.3 g/dL (2.2-4.0); Magnesium, Blood 3.7 mg/dL (1.6-2.4); Potassium, Blood 4.9 mmol/L (3.5-5.5); Total Protein, Blood 5.3 g/dL (6.4-8.2)
[2023-10-10 15:21] LABS: BASOPHILS PERCENT MAN 0 % (0-2); EOSINOPHILS PERCENT MAN 0 % (0-6); LYMPHOCYTES ABSOLUTE MAN 0.55 K/mm3 (0.84-5.20); LYMPHOCYTES PERCENT MAN 16 % (21-46); MONOCYTES ABSOLUTE MAN 0.24 K/mm3 (0.16-1.47); MONOCYTES PERCENT MAN 7 % (4-13); NEUTROPHILS ABSOLUTE MAN 2.64 K/mm3 (1.96-9.15); SEG NEUTROPHILS PERCENT MAN 77 % (41-73); TOTAL CELLS COUNTED 100
--- NOTE | 2023-10-10 16:19 | NUR ---
PT HAS A 22G IN RIGHT FOREARM THAT SHOWS NO SIGNS OF INFILTRATION, NO SWELLING, INFLAMATION, DRAINAGE NOTED. FLUSHES WELL AND DRAINS WELL TO GRAVITY.
--- NOTE | 2023-10-10 18:35 | NUR ---
SHIFT SUMMARY LEFT ROOM FOR O.R. TO HAVE LAP DIAGNOSTIC WITH GEN SURGERY DR BEAULIEU APPROX 1600. WILL REPORT TO ONCOMING NOC RN.
--- NOTE | 2023-10-10 19:15 | NUR ---
ARRIVAL TO UNIT PT CAME VIA GURNEY FROM PACU. PT ON 4L NC, LUNG SOUND MOIST AND COARSE. PT ABLE TO WAKE AND TALK TO STAFF, VERY DROWSY. TRANSFERED TO BED VIA SLIDER SHEET. ABD DISTENDED, TENDER AND FIRM. MIDLINE INSICION WITH GARY DRESSING, COMPRESSED AND WORKING. ODELL DRAIN IN RUQ OF ABD, COMPRESSED AND DRAINING SEROSANGUINEOUS FLUID. PT LEIGH ANY PAIN AT THIS TIME. PT NPO AT THIS TIME. RESTING IN BED COMFORTABLY. CALL LIGHT WITHIN REACH
[2023-10-11 04:08] VITALS: BP 96/62
[2023-10-11 05:24] LABS: Hematocrit 29.8 % (33.0-51.0); Hemoglobin 10.1 g/dL (11.5-16.0); Mean Corpuscular HGB 31.4 pg (26.0-34.0); Mean Corpuscular HGB Conc 33.9 g/dL (31.5-36.5); Mean Corpuscular Volume 93 fL (80-100); Platelet Count 238 K/mm3 (150-400); RDW Coefficient Variation 13.4 % (11.7-14.2); RDW Standard Deviation 45.4 fL (35.1-46.3); Red Blood Cell Count 3.22 M/mm3 (3.80-5.20); White Blood Cell Count 7.53 K/mm3 (4.00-11.30)
--- NOTE | 2023-10-11 05:24 | NUR ---
SHIFT SUMMARY POD 1 EX LAP DUODENAL UCLER PERF; POD 3 R FERNANDO PT RESTED T/O NIGHT. PAIN MANAGED PER EMAR. GARY DRESSING TO MIDLINE HAS SMALL AMOUNT OF DRAINAGE, OUTLINED. ODELL DRAIN HAD 40ML SEROSANGEINUOS FLUID OUT. ABD STILL DISTENDED AND TENDER TO PALP. PT REPORTS NOT PASSING GAS YET, BUT FEELS CONSTIPATED. MEDUIM AQUACEL DRESSING TO R HIP CHANGED DURING THE NIGHT, WILL CHANGED AGAIN THIS AM. 2 SMALLER AQUACEL ARE C/D/I. PT ON 2L NC SATTING ABOVE 92%. FLUIDS RUNNING, NPO. VSS. NO OTHER CAONCERNS AT THIS TIME. CALL LIGHT WITHIN REACH
[2023-10-11 05:46] LABS: BAND PERCENT MAN 12 % (0-8); BASOPHILS PERCENT MAN 0 % (0-2); EOSINOPHILS PERCENT MAN 0 % (0-6); LYMPHOCYTES ABSOLUTE MAN 0.67 K/mm3 (0.84-5.20); LYMPHOCYTES PERCENT MAN 9 % (21-46); METAMYELOCYTE ABSOLUTE MAN 0.07 K/mm3 (0.00-0.00); METAMYELOCYTE PERCENT MAN 1 % (0-0); MONOCYTES PERCENT MAN 4 % (4-13); NEUTROPHILS ABSOLUTE MAN 6.47 K/mm3 (1.96-9.15); SEG NEUTROPHILS PERCENT MAN 74 % (41-73); TOTAL CELLS COUNTED 100
[2023-10-11 06:06] LABS: Albumin, Blood 1.7 g/dL (3.4-5.0); Albumin/Globulin Ratio 0.5 (0.8-1.8); Bilirubin, Total 0.3 mg/dL (0.1-1.0); Bun/Creatinine Ratio 31.4 (12.0-20.0); Calcium, Blood 7.4 mg/dL (8.5-10.1); Creatinine, Blood 0.92 mg/dL (0.40-1.00); Globulin, Blood 3.4 g/dL (2.2-4.0); Magnesium, Blood 3.1 mg/dL (1.6-2.4); Phosphorus, Blood 4.2 mg/dL (2.5-4.9); Potassium, Blood 5.1 mmol/L (3.5-5.5); Total Protein, Blood 5.1 g/dL (6.4-8.2)
[2023-10-11 07:31] VITALS: BP 99/60
[2023-10-11 14:45] VITALS: BP 96/57
--- NOTE | 2023-10-11 17:17 | NUR ---
SHIFT SUMMARY POD 3 RTHA AND POD1 EX LAP WITH ELDER PATCH POWERGLIDE INSERTED TODAY. CLINIMIX STARTED. MIDLINE INCISION CDI, PT REMAINS DISTENDED, NOT PASSING GAS. PT FEELING VERY TIRED TODAY. MINIMAL ENERGY. REPOSITIONING WITH PILLOWS EVERY 2 HOURS PATIENT TOLERATES. FOAM PROTECTORS PLACED ON HEELS. R HIP INCISION DRESSING CHANGED THIS MORNING, CONTINUES TO HAVE SEROUS DRAINAGE. PAIN MANAGED PER EMAR.
[2023-10-11 19:15] VITALS: BP 122/65
[2023-10-12 03:49] VITALS: BP 102/58
[2023-10-12 07:06] VITALS: BP 101/61
--- NOTE | 2023-10-12 07:23 | NUR ---
SUMMARY NO ACUTE CHANGES OVER NIGHT, PT REMAINS A&O X4, VSS, SPO2 >95% ON 2L O2, RESP UNLABORED, CONT BIOX IN PLACE, NPO, PASSING SMALL AMOUNTS OF FLATUS PER PT, DENIES NAUSEA, MIDLINE DRSG INTACT, DRSG ON R.THIGH CHANGED X1, CIRC WNL, PAIN WNL, CLINIX INFUSING PER EMAR, SIFUENTES CATH PATENT, BELOW BLADDER, 600 ML'S CLEAR YELLOW URINE, Q2 TURNS PROVIDED, PT IS AWAKE WATCHING TV THIS AM, CALL LIGHT IN REACH, REPORT TO DAY RN
[2023-10-12 11:45] VITALS: BP 115/61
[2023-10-12 15:07] VITALS: BP 100/65
--- NOTE | 2023-10-12 17:41 | NUR ---
SHIFT SUMMARY POD 4 RTHA AND POD 2 EX LAP WITH ELDER PATCH PT REQUIRING MORE PAIN MEDICATION TODAY, BUT REPORTS PASSING GAS. UP TO CHAIR FOR MOST OF SHIFT. PT REPOSITONING SELF AND ASKING FOR HELP WITH REPOSITIONING. PT VERY WEAK WITH TRANSFER, 2 ASSIST FWW AND GB. BUT PT IS ENCOURAGED WITH MOVING MORE. CLINIMIX CONTINUES TO INFUSE. TITRATED DOWN TO 1L NASAL CANULA. SIFUENTES PATENT AND DRAINING.
[2023-10-12 19:28] VITALS: BP 105/62
[2023-10-13] VITALS (9 sets, daily range): BP systolic 91–133; BP diastolic 59–84
[2023-10-13 06:17] LABS: BASOPHILS ABSOLUTE AUTO 0.01 K/mm3 (0.00-0.23); BASOPHILS PERCENT AUTO 0 % (0-2); EOSINOPHILS ABSOLUTE AUTO 0.06 K/mm3 (0.00-0.68); EOSINOPHILS PERCENT AUTO 1 % (0-6); Hematocrit 25.3 % (33.0-51.0); Hemoglobin 8.5 g/dL (11.5-16.0); IMMATURE GRAN ABSOLUTE AUTO 0.04 K/mm3 (0.00-0.10); IMMATURE GRAN PERCENT AUTO 1 % (0-1); LYMPHOCYTES ABSOLUTE AUTO 0.61 K/mm3 (0.84-5.20); LYMPHOCYTES PERCENT AUTO 9 % (21-46); MONOCYTES ABSOLUTE AUTO 0.54 K/mm3 (0.16-1.47); MONOCYTES PERCENT AUTO 8 % (4-13); Mean Corpuscular HGB 30.8 pg (26.0-34.0); Mean Corpuscular HGB Conc 33.6 g/dL (31.5-36.5); Mean Corpuscular Volume 92 fL (80-100); Mean Platelet Volume 9.4 fL (9.1-12.4); NEUTROPHILS ABSOLUTE AUTO 5.62 K/mm3 (1.96-9.15); NEUTROPHILS PERCENT AUTO 82 % (41-73); Platelet Count 222 K/mm3 (150-400); RDW Standard Deviation 43.5 fL (35.1-46.3); Red Blood Cell Count 2.76 M/mm3 (3.80-5.20); White Blood Cell Count 6.88 K/mm3 (4.00-11.30)
[2023-10-13 06:55] LABS: Albumin/Globulin Ratio 0.6 (0.8-1.8); Bilirubin, Total 0.4 mg/dL (0.1-1.0); Bun/Creatinine Ratio 40.8 (12.0-20.0); Calcium, Blood 8.2 mg/dL (8.5-10.1); Creatinine, Blood 0.64 mg/dL (0.40-1.00); Globulin, Blood 3.6 g/dL (2.2-4.0); Potassium, Blood 3.9 mmol/L (3.5-5.5); Total Protein, Blood 5.6 g/dL (6.4-8.2)
--- NOTE | 2023-10-13 07:59 | NUR ---
SUMMARY PT REMAINS A&O X4, SPO2 >94% ON 2L O2, LUNG SOUNDS COARSE, INCENTIVE SPIROMETER STRONGLY ENC, WEAK COUGH EFFORT, DRSG'S C/D/I, SEROSANGUINOUS FLUID IN ODELL, ABD MODERATLY DISTENDED, REDNESS/HEAT NOTED IN RIGHT SIDE/FLANK AREA, FREQUENT REPOSITIONING, SIFUENTES PATENT, PT IS AWAKE WATCHING TV THIS MORNING, CALL LIGHT IN REACH, REPORT GIVEN TO OBINNA FORD,
--- NOTE | 2023-10-13 18:19 | NUR ---
SHIFT SUMMARY POD5 L FERNANDO, DRESSING INTACT; POD3 GARY WNL/ODELL W/SSD. A&OX4, VSS/2LNC, MAXWELL PO CLEARS, SIFUENTES PATENT & DRAINING YELLOW URINE/STAT LOCK ON/OFF FLOOR, AMB 2 PP MAX ASSIST WITH GB/STAND PIVOT BED/CHAIR, UP TO CHAIR T/O AFTERNOON, PAIN TREATED PER EMAR, POWERGLIDE NAA/INFUSING ABX AND CLINIMIX PER EMAR. WILL REPORT TO ONCOMING NOC LOGAN.
[2023-10-14 03:11] VITALS: BP 122/77
--- NOTE | 2023-10-14 04:37 | NUR ---
SHIFT SUMMARY NO ACUTE CHANGES NOTED, PT REMAINS A&O X4, VSS, SPO2 >96% ON 2 L/MIN VIA NC, I/S USE STRONGLY ENC, Q2 TURNS PROVIDED, HEEL PROTECTORS ARE ON, DRSG'S TO RIGHT HIP & ABD REMAIN DRY & INTACT, GARY COMPRESSED, 50 ML'S SS FLUID IN ODELL DRAIN, BULB COMPRESSED, TOLERATING CLEAR LIQUIDS, SIFUENTES PATENT, BELOW BLADDER, DARK YELLOW URINE, PAIN WNL, PT RESTING QUIETLY IN BED, CALL LIGHT IN REACH, WCTM & REPORT TO ONCOMING RN.
[2023-10-14 04:51] LABS: BASOPHILS ABSOLUTE AUTO 0.02 K/mm3 (0.00-0.23); BASOPHILS PERCENT AUTO 0 % (0-2); EOSINOPHILS ABSOLUTE AUTO 0.14 K/mm3 (0.00-0.68); EOSINOPHILS PERCENT AUTO 2 % (0-6); Hematocrit 25.8 % (33.0-51.0); Hemoglobin 8.6 g/dL (11.5-16.0); IMMATURE GRAN ABSOLUTE AUTO 0.12 K/mm3 (0.00-0.10); IMMATURE GRAN PERCENT AUTO 2 % (0-1); LYMPHOCYTES ABSOLUTE AUTO 0.74 K/mm3 (0.84-5.20); LYMPHOCYTES PERCENT AUTO 11 % (21-46); MONOCYTES ABSOLUTE AUTO 0.79 K/mm3 (0.16-1.47); MONOCYTES PERCENT AUTO 11 % (4-13); Mean Corpuscular HGB 30.7 pg (26.0-34.0); Mean Corpuscular HGB Conc 33.3 g/dL (31.5-36.5); Mean Corpuscular Volume 92 fL (80-100); Mean Platelet Volume 9.1 fL (9.1-12.4); NEUTROPHILS ABSOLUTE AUTO 5.16 K/mm3 (1.96-9.15); NEUTROPHILS PERCENT AUTO 74 % (41-73); Platelet Count 252 K/mm3 (150-400); RDW Coefficient Variation 12.9 % (11.7-14.2); RDW Standard Deviation 43.3 fL (35.1-46.3); White Blood Cell Count 6.97 K/mm3 (4.00-11.30)
[2023-10-14 05:41] LABS: Albumin, Blood 2.3 g/dL (3.4-5.0); Albumin/Globulin Ratio 0.6 (0.8-1.8); Bilirubin, Total 0.4 mg/dL (0.1-1.0); Bun/Creatinine Ratio 34.8 (12.0-20.0); Calcium, Blood 8.5 mg/dL (8.5-10.1); Creatinine, Blood 0.6 mg/dL (0.40-1.00); Globulin, Blood 3.8 g/dL (2.2-4.0); Potassium, Blood 3.6 mmol/L (3.5-5.5); Total Protein, Blood 6.1 g/dL (6.4-8.2)
[2023-10-14 07:15] VITALS: BP 122/76
[2023-10-14 12:35] VITALS: BP 120/70
[2023-10-14 19:16] VITALS: BP 111/68
[2023-10-15 04:32] VITALS: BP 111/68
--- NOTE | 2023-10-15 04:32 | NUR ---
SHIFT SUMMARY NO ACUTE CHANGES. PT RESTED WELL T/O NIGHT. REPOSITIONING IN BED PRN. WAS ABLE TO TOLERATE SOME CLEAR LIQS WITHOUT NAUSEA. BTS PRESENT BUT HYPOACTIVE. GARY DRESSING REMAINS UNCHANGED AND COMPRESSED. ODELL DRAIN WITH MINIMAL SEROUS FLUIDS OUT. SIFUENTES INTACT. UP WITH 1-2 ASSIST USING FWW/GB. IV DILAUDID FOR PAIN MANAGEMENT. PT USING I/S INTERMITTENTLY. R HIP DRESSINGS CDI. CALL LIGHT WITHIN REACH.
[2023-10-15 06:33] LABS: BASOPHILS ABSOLUTE AUTO 0.03 K/mm3 (0.00-0.23); BASOPHILS PERCENT AUTO 0 % (0-2); EOSINOPHILS ABSOLUTE AUTO 0.19 K/mm3 (0.00-0.68); EOSINOPHILS PERCENT AUTO 3 % (0-6); Hematocrit 25.4 % (33.0-51.0); Hemoglobin 8.4 g/dL (11.5-16.0); IMMATURE GRAN ABSOLUTE AUTO 0.26 K/mm3 (0.00-0.10); IMMATURE GRAN PERCENT AUTO 4 % (0-1); LYMPHOCYTES ABSOLUTE AUTO 0.89 K/mm3 (0.84-5.20); LYMPHOCYTES PERCENT AUTO 13 % (21-46); MONOCYTES ABSOLUTE AUTO 0.94 K/mm3 (0.16-1.47); MONOCYTES PERCENT AUTO 14 % (4-13); Mean Corpuscular HGB 30.2 pg (26.0-34.0); Mean Corpuscular HGB Conc 33.1 g/dL (31.5-36.5); Mean Corpuscular Volume 91 fL (80-100); Mean Platelet Volume 9.2 fL (9.1-12.4); NEUTROPHILS PERCENT AUTO 67 % (41-73); Platelet Count 302 K/mm3 (150-400); RDW Coefficient Variation 12.7 % (11.7-14.2); RDW Standard Deviation 42.7 fL (35.1-46.3); Red Blood Cell Count 2.78 M/mm3 (3.80-5.20); White Blood Cell Count 6.91 K/mm3 (4.00-11.30)
[2023-10-15 06:59] LABS: Albumin, Blood 2.4 g/dL (3.4-5.0); Albumin/Globulin Ratio 0.6 (0.8-1.8); Bilirubin, Total 0.4 mg/dL (0.1-1.0); Bun/Creatinine Ratio 35.6 (12.0-20.0); Calcium, Blood 8.7 mg/dL (8.5-10.1); Creatinine, Blood 0.56 mg/dL (0.40-1.00); Globulin, Blood 3.7 g/dL (2.2-4.0); Potassium, Blood 3.5 mmol/L (3.5-5.5); Total Protein, Blood 6.1 g/dL (6.4-8.2)
[2023-10-15 07:17] VITALS: BP 119/70
[2023-10-15 09:40] VITALS: BP 104/71
[2023-10-15 14:22] VITALS: BP 107/70
--- NOTE | 2023-10-15 15:23 | NUR ---
DRESSING CHANGE PATIENT HAS REDDNESS AND WEEPING FROM INCISION SITE ON R HIP. AQUACEL DRESSING WAS REMOVED. INCISION CLEANED WITH PEROXIDE AND GAUZE.EXU-DRY COVERING PLACED AND TEGADERM TO HOLD CORNERS OF EXU-DRY. PATIENT HAS QUARTER SIZED BLISTERS ON SKIN CLOSE TO INCISION SITE. PATIENT BACK TO BED WITH 2 ASSIST AND TURNED ON LEFT SIDE TO TAKE PRESSURE OFF OF R HIP. POLAR RICKY REPLACED WITH TOWEL TO COVER. PATIENT MEDICATED WITH 0.5 MG OF DILAUDED. TOLERATES WELL.
[2023-10-15 19:16] VITALS: BP 119/83
--- NOTE | 2023-10-15 22:38 | NUR ---
RESPIRATORY STATUS UPDATE PT REPORTED INCREASED SOB AFTER BEING UP TO BSC. RR NOTED TO BE HIGH 20'S W/INCREASED WOB. HOSPITALIST CALLED, OBTAIEND ORDER FOR VBG, BNP, IV LASIX, AND ONCE TIME ALBUTEROL NEB. ALSO OBTAINED ORDER FOR CPAP TO RELIEVE WOB IF WOB CONTINUES TO BE ELEVATED. GIVEN OKAY TO CONTINUE CLINAMEX @50/HR
[2023-10-15 23:01] LABS: Base Excess Venous 10.7 mmol/L; Bicarbonate Venous 33.2 mmol/L (24.0-30.0); PCO2 Venous 50.7 mmHg (38-42); pH Blood Venous 7.45 (7.34-7.37)
[2023-10-16 03:39] VITALS: BP 89/59
--- NOTE | 2023-10-16 04:30 | NUR ---
SHIFT SUMMARY POD8 RTHA, INCISION CLEANSED AND DRESSING CHANGED. POD6 EX LAP W/ ELDER PATCH. MIDLINE PICCO REMAINS COMPRESSED, NO NEW DRAINAGE NOTED ON DRESSING. ODELL DRAIN IN RLQ, SS DRAINAGE NOTED. MINIMAL OUTPUT NOTED. VSS. PLEASE SEE PREVIOUS NURSING NOTE FOR RESPIRATORY UPDATE. SINCE TREATMENTS HAVE BEEN ADMINISTERED PT REPORTS DECREASED SOB, WOB HAS DECREASED, AND CRACKLES IN LUNG CALDWELL HAVE DECREASED. PT REMAINS PAINFUL T/O THE NIGHT, MEDICATED TWICE W/DILAUDID W/GOOD RESULTS. PT REPORTS HER PAIN HAS DRASTICALLY IMPROVED OVERALL. TOLLERATED VERY MINIMAL PO INTAKE T/O THE NIGHT, MEDICATED FOR NAUSEA ONCE. NO EMESIS NOTED. PURE WICK PLACED T/O THE NIGHT D/T LASIX ADMINISTRATION, PT INFORMED THAT THIS WOULD BE REMOVED TODAY. PLAN TO CONTINUE TO ENCOURAGE PO INTAKE AND WORK W/ PHYSICAL THERAPY.
[2023-10-16 06:11] LABS: BASOPHILS ABSOLUTE AUTO 0.05 K/mm3 (0.00-0.23); BASOPHILS PERCENT AUTO 1 % (0-2); EOSINOPHILS ABSOLUTE AUTO 0.17 K/mm3 (0.00-0.68); EOSINOPHILS PERCENT AUTO 2 % (0-6); Hematocrit 25.9 % (33.0-51.0); Hemoglobin 8.7 g/dL (11.5-16.0); IMMATURE GRAN ABSOLUTE AUTO 0.47 K/mm3 (0.00-0.10); IMMATURE GRAN PERCENT AUTO 5 % (0-1); LYMPHOCYTES ABSOLUTE AUTO 1.13 K/mm3 (0.84-5.20); LYMPHOCYTES PERCENT AUTO 13 % (21-46); MONOCYTES ABSOLUTE AUTO 0.97 K/mm3 (0.16-1.47); MONOCYTES PERCENT AUTO 11 % (4-13); Mean Corpuscular HGB 30.7 pg (26.0-34.0); Mean Corpuscular HGB Conc 33.6 g/dL (31.5-36.5); Mean Corpuscular Volume 92 fL (80-100); Mean Platelet Volume 9.1 fL (9.1-12.4); NEUTROPHILS ABSOLUTE AUTO 6.02 K/mm3 (1.96-9.15); NEUTROPHILS PERCENT AUTO 68 % (41-73); Platelet Count 356 K/mm3 (150-400); RDW Coefficient Variation 12.7 % (11.7-14.2); RDW Standard Deviation 42.5 fL (35.1-46.3); Red Blood Cell Count 2.83 M/mm3 (3.80-5.20); White Blood Cell Count 8.81 K/mm3 (4.00-11.30)
[2023-10-16 06:32] LABS: Albumin, Blood 2.6 g/dL (3.4-5.0); Albumin/Globulin Ratio 0.7 (0.8-1.8); Bilirubin, Total 0.4 mg/dL (0.1-1.0); Creatinine, Blood 0.69 mg/dL (0.40-1.00); Globulin, Blood 3.8 g/dL (2.2-4.0); Potassium, Blood 3.7 mmol/L (3.5-5.5); Total Protein, Blood 6.4 g/dL (6.4-8.2)
[2023-10-16 06:40] VITALS: BP 109/64
[2023-10-16 07:23] VITALS: BP 100/61
--- NOTE | 2023-10-16 11:16 | NUR ---
Pt. is sitting up in her recliner when she welcomes my visit. ASSISTANT DIRECTOR OF PLANT OPERATIONS is present making the Pts. bed. facilitate a life review with the Pt. Pt. displays evidence of unresolved grief. Considered matters of family and loss while listening with empathey and a pastoral presence. Established rapport. Pt. displayed evidence of awareness and trust. Prayed with Pt. Pt. verbalized gratitude for the spiritual care visit and welcomed this extra hand to return.
[2023-10-16 14:59] VITALS: BP 119/78
--- NOTE | 2023-10-16 16:06 | NUR ---
SHIFT SUMMARY POD 8 RTHA, POD 6 EXLAP ELDER PATCH PT HAS BEEN TOLERATING DIET MORE TODAY, ENCOURAGINING INTAKE. GARY AND ODELL REMAIN PATENT. R HIP DRESSING CDI. PT TRANSFERING WELL WITH 1 ASSIST, FWW, GLADYS. PAIN CONTROLLED PER EMAR. PT AFFECT IMPROVING, MORE INTERACTIVE IN CONVERSING WITH NURSING AND THERAPY TODAY.
[2023-10-16 19:16] VITALS: BP 110/68
[2023-10-17 05:03] VITALS: BP 112/69
--- NOTE | 2023-10-17 05:31 | NUR ---
SHIFT SUMMARY POD9 R FERNANDO, DRESSING IS C.D.I. SENSATION AND CIRCULATION REMAINS INTACT IN RLE. POD7 EXLAP W/ELDER PATCH. MIDLINE PICCO REMAINS COMPRESSED AND PATENT. ODELL SITE REMAINS C/D/I, LIGHT PINK SS FLUID NOTED. SIGNIFIGANTLY LESS RED THAN PREVIOUS NIGHT. VSS. PT REMAINS ON 2.5 L VIA NC. REPORTS BREATHING IS EASIER FOR HER TONIGHT. CRACKLES NOTED IN BILAT UPPER LUNG CALDWELL. PT ENCOURAGED TO NOT HOLD BACK HER COUGHS AND TO UTILIZE I.S EVERY COMMERCIAL BREAK. PT IS SPITTING UP PHLEM, LIGHT GREEN/YELLOW COLOR, VERY THICK. VOIDING W/O DIFFICULTY AND PASSING BM'S/FLATTUS. PT STILL HAS LOW PO INTAKE, ENCOURAGED T/O THE NIGHT TO DRINK FLUIDS. PT MOBILIZING SLIGHTLY BETTER TODAY. GOT OOB AND INTO RECLINER TO BE READY FOR DAY SHIFT AND BREAKFAST. MEDICATED FOR PAIN ONCE, OTHERWISE PT REPORTS HER DISCOMFORT IS TOLLERABLE AND IMPROVIN DAY BY DAY. OVERALL NO ACUTE EVENTS NOTED T/O THE NIGHT.
[2023-10-17 06:08] LABS: Hematocrit 26.3 % (33.0-51.0); Hemoglobin 8.5 g/dL (11.5-16.0); Mean Corpuscular HGB 29.6 pg (26.0-34.0); Mean Corpuscular HGB Conc 32.3 g/dL (31.5-36.5); Mean Corpuscular Volume 92 fL (80-100); Platelet Count 410 K/mm3 (150-400); RDW Coefficient Variation 13.2 % (11.7-14.2); RDW Standard Deviation 43.5 fL (35.1-46.3); Red Blood Cell Count 2.87 M/mm3 (3.80-5.20); White Blood Cell Count 9.57 K/mm3 (4.00-11.30)
[2023-10-17 06:48] LABS: Albumin, Blood 2.9 g/dL (3.4-5.0); Albumin/Globulin Ratio 0.8 (0.8-1.8); Bilirubin, Total 0.3 mg/dL (0.1-1.0); Calcium, Blood 8.9 mg/dL (8.5-10.1); Creatinine, Blood 0.77 mg/dL (0.40-1.00); Globulin, Blood 3.6 g/dL (2.2-4.0); Potassium, Blood 3.7 mmol/L (3.5-5.5); Total Protein, Blood 6.5 g/dL (6.4-8.2)
[2023-10-17 07:28] VITALS: BP 106/61
[2023-10-17 10:06] LABS: BAND PERCENT MAN 1 % (0-8); BASOPHILS PERCENT MAN 0 % (0-2); EOSINOPHILS ABSOLUTE MAN 0.19 K/mm3 (0.00-0.68); EOSINOPHILS PERCENT MAN 2 % (0-6); LYMPHOCYTES ABSOLUTE MAN 1.62 K/mm3 (0.84-5.20); LYMPHOCYTES PERCENT MAN 17 % (21-46); MONOCYTES ABSOLUTE MAN 0.76 K/mm3 (0.16-1.47); MONOCYTES PERCENT MAN 8 % (4-13); MYELOCYTE ABSOLUTE MAN 0.19 K/mm3 (0.00-0.00); MYELOCYTE PERCENT MAN 2 % (0-0); NEUTROPHILS ABSOLUTE MAN 6.79 K/mm3 (1.96-9.15); SEG NEUTROPHILS PERCENT MAN 70 % (41-73); TOTAL CELLS COUNTED 100
--- NOTE | 2023-10-17 12:54 | NUR ---
DR. BEAULIEU JUST CAME BY AND TOOK OUT THE PATIENTS ODELL DRAIN ON HER RLQ OF HER ABD AND SHE TOLERATED IT WELL. DR. BEAULIEU STATED "WHEN SHE GOES TO [facility] THEY CAN REMOVE HER MIDLINE ABD JAYASHREE NEXT FRIDAY, AND NO NEED TO FOLLOW UP WITH ME AFTER THAT". PATIENT IS LAYING IN BED WITH CALL LIGHT IN REACH.
[2023-10-17 14:57] VITALS: BP 112/61
--- NOTE | 2023-10-17 15:19 | NUR ---
SHIFT SUMMARY: POD 9 RIGHT TOTAL HIP POSTERIOR, POD 7 BOWEL PERF REPAIR PATIENT IS A&OX4. VS ARE WNL AND IS CURRENTLY ON 1L NC WITH >90% OXYGEN SATS. PATIENT HAS A MOIST WEAK COUGH WITH NO MUCUS PRODUCTION BUT THIS NURSE IS ENCOURAGING HER TO USE HER INCENTIVE SPIOROMETER THAT IS ON HER BEDSIDE TABLE. HER RIGHT HIP HAS AN AQUACEL DRESSING THAT IS C/D/I. DENIES NUMBNESS OR TINGLING IN ALL EXTREMITIES. DR. BEAULIEU CAME BY EARLIER IN THE SHIFT (SEE PRIOR NOTES) AND TOOK OUT PATIENTS ODELL DRAIN AND ALSO REMOVED HER MIDLINE GARY. HER MIDLINE WITH JAYASHREE IS OPEN TO AIR AND IS C/D/I. HER OLD ODELL DRAIN SITE IS ALSO C/D/I. SHE IS TOLERATING HER REGULAR DIET AND IS VOIDING/HAVING BMS. SHE IS A 1-2 PERSON SBA WITH FWW AND GAIT BELT. PAIN IS MANAGED WITH PO PERCOCET. PATIENT IS CURRENTLY LAYING IN BED WITH CALL LIGHT IN REACH. THE PLAN IS TO HAVE THE PATIENT RECIEVE A CHEST CT AND TO HAVE HER PROCALCITONIN LAB CHECKED PER DR. ENCARNACION'S ORDERS SINCE THE PATIENT HAS A POSSIBLITY OF HAVING PNEUMONIA WHICH WOULD REQUIRE ABX. STILL AWAITING FOR BOTH THE PROCALCITONIN LAB AND CT RESULTS.
[2023-10-17 19:15] VITALS: BP 115/75
[2023-10-18 04:58] VITALS: BP 107/62
[2023-10-18 06:38] LABS: Hematocrit 25.9 % (33.0-51.0); Hemoglobin 8.6 g/dL (11.5-16.0); Mean Corpuscular HGB 30.5 pg (26.0-34.0); Mean Corpuscular HGB Conc 33.2 g/dL (31.5-36.5); Mean Corpuscular Volume 92 fL (80-100); Platelet Count 442 K/mm3 (150-400); RDW Coefficient Variation 13.2 % (11.7-14.2); RDW Standard Deviation 44.4 fL (35.1-46.3); Red Blood Cell Count 2.82 M/mm3 (3.80-5.20); White Blood Cell Count 9.23 K/mm3 (4.00-11.30)
[2023-10-18 07:05] LABS: BAND PERCENT MAN 3 % (0-8); BASOPHILS PERCENT MAN 0 % (0-2); EOSINOPHILS ABSOLUTE MAN 0.36 K/mm3 (0.00-0.68); EOSINOPHILS PERCENT MAN 4 % (0-6); LYMPHOCYTES ABSOLUTE MAN 1.38 K/mm3 (0.84-5.20); LYMPHOCYTES PERCENT MAN 15 % (21-46); METAMYELOCYTE ABSOLUTE MAN 0.09 K/mm3 (0.00-0.00); METAMYELOCYTE PERCENT MAN 1 % (0-0); MONOCYTES ABSOLUTE MAN 0.83 K/mm3 (0.16-1.47); MONOCYTES PERCENT MAN 9 % (4-13); MYELOCYTE ABSOLUTE MAN 0.18 K/mm3 (0.00-0.00); MYELOCYTE PERCENT MAN 2 % (0-0); NEUTROPHILS ABSOLUTE MAN 6.27 K/mm3 (1.96-9.15); OTHER CELL PERCENT MAN 1 % (0-0); SEG NEUTROPHILS PERCENT MAN 65 % (41-73); TOTAL CELLS COUNTED 100
[2023-10-18 07:11] LABS: Albumin, Blood 2.9 g/dL (3.4-5.0); Albumin/Globulin Ratio 0.7 (0.8-1.8); Bilirubin, Total 0.3 mg/dL (0.1-1.0); Bun/Creatinine Ratio 46.6 (12.0-20.0); Calcium, Blood 9.1 mg/dL (8.5-10.1); Creatinine, Blood 0.77 mg/dL (0.40-1.00); Globulin, Blood 3.9 g/dL (2.2-4.0); Potassium, Blood 3.6 mmol/L (3.5-5.5); Total Protein, Blood 6.8 g/dL (6.4-8.2)
[2023-10-18 07:12] VITALS: BP 108/65
--- NOTE | 2023-10-18 07:42 | NUR ---
SHIFT SUMMARY NOC. PT POD 10 FOR R POSTERIOR TOTAL HIP AND POD 8 FOR EXLAP WITH GRAM PATCH FOR BOWEL PERF. PT A/O X4. PT MEDICATED FOR PAIN X1 WITH RELIEF. PT HAD CHEST CT PERFORMED AT BEGINNING OF SHIFT. PT'S MIDLINE ABD INCISION IS OPEN TO AIR AND C/D/I. PT'S RIGHT HIP DRESSINGS ARE C/D/I. PT ENCOURAGED TO CONTINUE I.S. USE. PT HAS A MOIST COUGH BUT WAS UNABLE TO PRODUCE ADEQUATE SPUTUM CULTURE THIS SHIFT. PT RESTED WITH EYES CLOSED AND CALL LIGHT IN REACH.
[2023-10-18 12:29] LABS: SARS-Cov-2 (COVID-19) PCR, MMC NEGATIVE (NEGATIVE)
[2023-10-18] MEDS ORDERED: XARELTO20 MG PO (13:25)
[2023-10-18] MEDS ORDERED: Percocet 5-3251 EACH PO (13:27)
[2023-10-18] MEDS ORDERED: FURO40 PO (13:28)
[2023-10-18] MEDS ORDERED: Synthroid200 MCG PO (13:30)
[2023-10-18] MEDS ORDERED: ASPI81CH PO (13:31)
[2023-10-18 14:20] VITALS: BP 115/53
[2023-10-18 14:36] VITALS: BP 81/62
--- NOTE | 2023-10-18 14:43 | NUR ---
NURSE NOTE. HAD EPISODE OF HYPOTENSTION THIS SHIFT WHILE STANDING FOR BRIEF CHANGE. OXYGEN AT THIS TIME WAS 91% ON ROOM AIR CONSTANTLY. PATIENT STATED SHE FELT DIZZY AND WANTED TO SIT BACK DOWN. ON RECHECK ABOUT 5 MINUTES LATER, BP WAS 115/53. STATED SHE NO LONGER FELT DIZZY. PATIENT HAD BEEN GIVEN NARCOTICS SHORTLY PRIOR TO ACTIVITY. CARES ONGOING.
--- NOTE | 2023-10-18 16:40 | NUR ---
DISCHARGE SUMMARY PATIENT SET TO DISCHARGE TO [facility] WITH [facility] TO TRANSPORT. MIDLINE REMOVED WITHOUT COMPLICATIONS PRIOR TO DISCHARGE. CALLED REPORT TO [place], VERBALIZED UNDERSTANDING OF DISCHARGE INSTRUCTIONS, QUESTIONS ANSWERED. DR ESPINAL STATED TO HAVE ESCRIBED PAIN MEDS TO FACILITY PHARMACY. MIDLINE ABDOMNIAL JAYASHREE INTACT AND NO SIGNS OF INFECTION AT DISCHARGE. HIP SUTURES INTACT AND NO SIGNS OF INFECTION AT DISCHARGE, MEPILEX DRESSING IN PLACE.
== END 2023-10-18 18:10 | disposition home or self-care (01) | DRG 329 ==
LOC: ORSCMMR 06:11 → ORD 07:30 → ORSCMMR 07:30 → SURS 10:48 → ORSCMMR 10-10 03:10 → SURS 10-10 03:14
PROVIDERS: Family Medicine; Hospitalist; Internal Medicine; Nurse Practitioner Acute Care; Surgery; ADMIT Orthopaedic Surgery
PROC: 0DU907Z Supplement Duodenum with Autologous Tissue Substitute, Open Approach (ICD-10-PCS; principal; 2023-10-10 16:00)
DX: K26.5 Chronic or unspecified duodenal ulcer with perforation (principal); G92.8 Other toxic encephalopathy; J18.9 Pneumonia, unspecified organism; J96.01 Acute respiratory failure with hypoxia; M87.851 Other osteonecrosis, right femur; J98.11 Atelectasis; J44.0 Chronic obstructive pulmonary disease with (acute) lower respiratory infection; M87.051 Idiopathic aseptic necrosis of right femur; D62 Acute posthemorrhagic anemia; M16.11 Unilateral primary osteoarthritis, right hip; M81.0 Age-related osteoporosis without current pathological fracture; G62.9 Polyneuropathy, unspecified; I95.81 Postprocedural hypotension; F32.9 Major depressive disorder, single episode, unspecified; E89.0 Postprocedural hypothyroidism; H26.9 Unspecified cataract; G40.909 Epilepsy, unspecified, not intractable, without status epilepticus; E78.00 Pure hypercholesterolemia, unspecified; E83.42 Hypomagnesemia; K66.8 Other specified disorders of peritoneum; F10.20 Alcohol dependence, uncomplicated; K59.00 Constipation, unspecified; K44.9 Diaphragmatic hernia without obstruction or gangrene; I48.91 Unspecified atrial fibrillation; Z90.49 Acquired absence of other specified parts of digestive tract; Z85.810 Personal history of malignant neoplasm of tongue; Z87.891 Personal history of nicotine dependence; Z98.890 Other specified postprocedural states; Z85.850 Personal history of malignant neoplasm of thyroid; Z88.5 Allergy status to narcotic agent; Z79.811 Long term (current) use of aromatase inhibitors; Z79.82 Long term (current) use of aspirin; Z79.899 Other long term (current) drug therapy; Z11.52 Encounter for screening for COVID-19
CPT/HCPCS: 36415; 71045; 71250; 72170; 74018; 74177; 80048; 80053; 82803; 83735; 83880; 84100; 84145; 85025; 85027; 88304; 88311; 94640; 94664; 94760; 94762; 97110; 97110-CQ; 97116; 97163; 97165; 97530; 97535; A9270; C1713; C1751; C1776; C9113; J0171; J0690; J0692; J0735; J0780; J1100; J1170; J1650; J1885; J1940; J1953; J1956; J2250; J2371; J2405; J2543; J2704; J2765; J2795; J3010; J3475; J7030; J7050; J7120; P9047; Q9967; U0002